=== PATIENT | female | born 1985 | race African-American/Black ===

== ENCOUNTER 2017-06-15 17:03 | Emergency (ER) | payer BC, OTHER ==
[~2017-06-15] VITALS: Ht 154.9 cm; Wt 88.5 kg
[2017-06-15] MEDS ORDERED: [UNRECOGNIZED DRUG - OTHER] PO (17:47)
[2017-06-15] MEDS ORDERED: REGLAN 10 MG TA10 MG PO (18:23)
[2017-06-15 18:42] VITALS: BP 126/82
== END 2017-06-15 18:43 | disposition home or self-care (01) ==
LOC: ER 17:03
DX: R51 Headache (principal); Z98.890 Other specified postprocedural states; Z88.0 Allergy status to penicillin